=== PATIENT | female | born 1950 | race Caucasian/White ===

== ENCOUNTER → 2024-09-26 14:52 | Outpatient (REF) | payer MEDICARE, SELFPAY | LOC: PAVMRI 14:52 | PROVIDERS: ATTENDING PHYSICIAN Orthopaedic Surgery; FAMILY PHYSICIAN Internal Medicine | DX: Z96.642 Presence of left artificial hip joint (principal); M70.62 Trochanteric bursitis, left hip; M76.32 Iliotibial band syndrome, left leg | CPT/HCPCS: 73721 ==

== ENCOUNTER 2024-12-09 10:01 | Inpatient (IN) | payer MEDICARE, SELFPAY ==
[2024-11-25 10:50] LABS: Hematocrit 31.4 % (37.0-47.0); Hemoglobin 10.2 g/dL (12.0-16.0); Mean Corp Hgb Conc. 32.5 g/dL (33.0-37.0); Mean Corpuscular Hgb 29.4 pg (27.0-31.0); Mean Corpuscular Volume 90.5 fL (81.0-99.0); Mean Platelet Volume 10.2 fL (7.4-10.4); Platelet Count 233 10^3/uL (130-400); Red Blood Cell Count 3.47 10^6/uL (4.20-5.40); Red Cell Dist. Width 14.5 % (11.5-14.5); White Blood Cell Count 7.1 10^3/uL (4.8-10.8)
[2024-11-25 11:11] LABS: ALT (SGPT) 21 U/L (0-35); AST (SGOT) 26 U/L (14-36); Albumin 4.3 g/dl (3.5-5.0); Alkaline Phosphatase 61 U/L (38-126); Blood Urea Nitrogen 34 mg/dl (7-17); Calcium 9.6 mg/dl (8.4-10.2); Carbon Dioxide 25 mmol/L (22-30); Chloride 104 mmol/L (98-107); Glucose 141 mg/dl (70-99); Potassium 4.5 mmol/L (3.5-5.1); Sodium 138 mmol/L (135-145); Total Bilirubin 0.2 mg/dl (0.2-1.3); Total Protein 6.7 g/dl (6.3-8.2)
[2024-11-25 13:24] LABS: Glycohemoglobin (HgbA1c) 6.8 % (4.0-5.6)
[2024-11-25 14:14] VITALS: BMI 32.1
[2024-12-03 14:40] VITALS: BMI 32.1
--- NOTE | 2024-12-03 14:41 | PTCARENOTE ---
Pt was under the impression from office that she is receiving VN and PT at home. Pt will call Cielo in office to clarify. She is aware she will need to set up outpt PT melanie if not receiving home.
[2024-12-09] VITALS (15 sets, daily range): BP systolic 83–132; BP diastolic 54–78; PULSE 57–60; O2SAT 96; BMI 32.1
[2024-12-09 10:35] LABS: Glucose - Point of Care 126 mg/dl (70-99)
[2024-12-09] MEDS: NORMOSOL-R/PLASMALYTE-A 1000 IV ×2 (10:53→16:42)
[2024-12-09] MEDS: CELEBREX 200 MG PO (10:53)
[2024-12-09] MEDS: TYLENOL 650 MG PO ×3 (10:53→20:15)
--- NOTE | 2024-12-09 13:57 | W.DS.TRANS ---
DC Summary - Claims Counsel
-
Discharge Instructions:
Discharge Diagnosis/Procedures L JASON Revision 12/09/24
Diet Diabetic, Carb Controlled
Activity With Walker
Driving Restrictions No driving
Bathing Restrictions OK to Shower
Other Services PT
Instructions:
Stand-Alone Forms: Total Hip/Knee Replacement D/C
Changes to Home Medications: Yes
Discharge Medications:
DC Medications w/original date entered in [facility]
clozapine 100 mg tablet 100 mg PO HS 05/30/21
clozapine 25 mg tablet 75 mg PO HS 05/30/21
fenofibric acid (choline) 135 mg capsule,delayed release 135 mg PO DAILY 05/30/21
losartan 25 mg tablet 25 mg PO HS 05/30/21
metformin 500 mg tablet 500 mg PO DAILY 05/30/21
simvastatin 20 mg tablet 20 mg PO HS 05/30/21
venlafaxine 150 mg capsule,extended release 24 hr (Effexor XR) 150 mg PO HS 05/30/21
venlafaxine 75 mg capsule,extended release 24 hr 75 mg PO HS 05/30/21
vit C 250 mg-vit E 90 mg-zinc 40 mg-copper 1 [id number] capsule (PreserVision AREDS-2) 1 ea PO BID 05/30/21
Bone Supplement 1 tab PO DAILY 12/03/24
Curcumin 1 tab PO DAILY PRN pain 12/03/24
Selenimin 1 tab PO DAILY 12/03/24
biotin 5,000 mcg chewable tablet 5,000 mcg PO DAILY 12/03/24
bupropion HCl 300 mg 24 hr tablet, extended release 300 mg PO HS 12/03/24
chlorhexidine gluconate 0.12 % mouthwash 15 ml buccal BID mouth pain/thrush 12/03/24
cholecalciferol (vitamin D3) 25 mcg (1,000 unit) tablet (Vitamin D3) 25 mcg PO DAILY 12/03/24
famotidine 10 mg tablet (Pepcid AC) 10 mg PO DAILY PRN reflux 12/03/24
ferrous sulfate 142 mg (45 mg iron) tablet,extended release 142 mg PO DAILY 12/03/24
gabapentin 100 mg capsule 100 mg PO HS 12/03/24
guar gum 1 tbsp PO DAILY PRN constipation 12/03/24
loratadine 10 mg tablet (Claritin) 10 mg PO DAILY 12/03/24
metformin 500 mg tablet 1,000 mg PO QPM 12/03/24
mupirocin 2 % topical ointment 1 applic topical BID infection prevention #1 tube 12/03/24
nystatin 100,000 unit/mL oral suspension 1 ml buccal TID PRN burning/thrush 12/03/24
vibegron 75 mg tablet (Gemtesa) 75 mg PO QPM 12/03/24
vitamin B complex 1 cap PO DAILY 12/03/24
Saccharomyces boulardii 250 mg capsule (Florastor) 250 mg PO BID #1 cap 12/09/24
acetaminophen 325 mg tablet (Tylenol) 650 mg (2 x 325 mg) PO QID #1 tab 12/09/24
aspirin 325 mg tablet 325 mg PO DAILY Blood clot prevention/tx #0 tabs 12/09/24
cefadroxil 500 mg capsule 500 mg PO BID infection prevention #14 caps 12/09/24
docusate sodium 100 mg capsule (Colace) 100 mg PO BID stool softner #1 cap 12/09/24
magnesium hydroxide 400 mg/5 mL oral suspension (Milk of Magnesia) 30 ml PO HS PRN Constipation #1 mL 12/09/24
oxycodone 5 mg tablet 5 mg PO Q6H PRN 1 tab moderate pain, 2 tabs severe pain #30 tabs 12/09/24
sennosides 8.6 mg capsule (senna) 17.2 mg (2 x 8.6 mg) PO BID PRN constipation #0 caps 12/09/24
sennosides 8.6 mg tablet (Senokot) 17.2 mg (2 x 8.6 mg) PO BID laxative #2 tabs 12/09/24
Home Medication Changes
Saccharomyces boulardii 250 mg capsule (Florastor) 250 mg PO BID #1 cap 12/09/24
acetaminophen 325 mg tablet (Tylenol) 650 mg (2 x 325 mg) PO QID #1 tab 12/09/24
aspirin 325 mg tablet 325 mg PO DAILY Blood clot prevention/tx #0 tabs 12/09/24
cefadroxil 500 mg capsule 500 mg PO BID infection prevention #14 caps 12/09/24
docusate sodium 100 mg capsule (Colace) 100 mg PO BID stool softner #1 cap 12/09/24
magnesium hydroxide 400 mg/5 mL oral suspension (Milk of Magnesia) 30 ml PO HS PRN Constipation #1 mL 12/09/24
oxycodone 5 mg tablet 5 mg PO Q6H PRN 1 tab moderate pain, 2 tabs severe pain #30 tabs 12/09/24
sennosides 8.6 mg capsule (senna) 17.2 mg (2 x 8.6 mg) PO BID PRN constipation #0 caps 12/09/24
sennosides 8.6 mg tablet (Senokot) 17.2 mg (2 x 8.6 mg) PO BID laxative #2 tabs 12/09/24
Pending Results: No
[2024-12-09 14:14] LABS: Glucose - Point of Care 112 mg/dl (70-99)
[2024-12-09] MEDS: ROXICODONE 5 MG PO (14:42)
--- NOTE | 2024-12-09 14:46 | OR.RPT ---
Operative Report
Operative Report
Orthopaedic Surgery Operative Note
DATE OF OPERATION: 12/09/2024
PREOPERATIVE DIAGNOSES: Mechanical failure of total hip replacement, left
POSTOPERATIVE DIAGNOSES: Same, trunionosis
OPERATION PERFORMED: Revision left total hip arthroplasty, single component, with ball head and polyethylene liner exchange
SURGEON: Tomás Mancera MD
WEAVING PROFESSOR: Berhane Stone PA-C who helped with patient and limb positioning and retraction
ANESTHESIA: Spinal
COMPLICATIONS: None.
ESTIMATED BLOOD LOSS: 50 mL.
DRAINS: None
SPECIMEN: x4; Cultures x3 and pathology x1
FINDINGS: Fibrinous nodular synovitis around lateral femur and hip capsule; no purulence; intact abductor tendons; minimal trunion wear; signs of corrosion of inner aspect of metal head; well fixed femoral and acetabular components
EXPLANTS:
[place] Trident 32mm posterior-lipped acetabular polyethylene liner
[place] Accolade cobalt-chrome femoral head 32mm +4mm
IMPLANTS:
[place] Trident 36mm neutral Polyethylene liner
Biolox delta ceramic 36mm +5mm femoral head
[place] C-Taper V40 adapter
INDICATIONS: The patient presented to my office with left hip pain. The patient had previously undergone total hip arthroplasty in 2007 at an outside facility. She had been experiencing worsening hip pain. Xrays showed soft tissue findings
concerning for metallosis. Implants appeared well fixed without fracture. Serum testing was low concern for infection but showed elevated serum metal ion levels. MRI showed fluid adjacent to joint and trochanter concerning for adverse location soft
tissue response. 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 We reviewed the natural history of this problem, as well as the risks, benefits, and alternatives of various treatment options. The patient exhausted all nonoperative treatment options and
wished to proceed with revision hip replacement surgery. I discussed that primary revision option would be exchange of modular parts including ball head and liner. I discussed that exchange of the acetabular or femoral component may also be
necessary if the components are noted to be loose or not in optimal position. The patient understood the risks which included, but were not limited to, bleeding, infection, failure to relieve pain, more pain than preop, damage to blood vessels and
nerves, need for reoperation, mechanical failure of the implants, wound healing problems, stiffness, instability, blood clot, pulmonary embolism, myocardial infarction, pneumonia, arrhythmia, CVA, and . The patient accepted these risks and
wished to proceed. All questions were answered, and informed consent was obtained.
PROCEDURE IN DETAIL: The patient was identified in the preoperative holding area. The left hip was identified as the operative site. The patient was taken in the operating room and transferred to the operative table. Spinal anesthesia was
performed. IV antibiotics and tranexamic acid were administered. The patient was placed in the lateral position with Stulberg hip positioners. Axillary roll was placed. The down leg was well padded. All bony prominences were well padded. The
operative limb was prepped and draped in the usual sterile fashion.
Time out was performed. A posterolateral approach to the hip was used. The prior scar was too posterior for optimal extensile exposure, so an incision was made centered on the greater trochanter. Dissection was taken down sharply through
subcutaneous tissues. Meticulous hemostasis was achieved throughout the case with electrocautery. We split the fascia devin in line with skin incision. I split the gluteus jacqui bluntly. We cauterized all crossing vessels as we split it. I palpated
the sciatic nerve and made sure it was well posterior in the operative field. It was protected throughout the case.
Upon splitting the ITB, there was friable noduler soft tissue changes about the lateral compartment extending to the joint and surrounding capsule. The posterior aspect of the femur was bare of short external rotator tendon attachments or posterior
capsule attachment. The gluteus medius and minimus tendon insertions were intact and were retracted anteriorly. I identified the posterior capsule and extended capsulotomy distally and inferiorly. The capsule and lateral compartment were debrided
of the friable nodular soft tissue down to healthy appearing capsule and muscle tissue. There was no purulence about the hip or signs of infection. Tissue cultures were sent. The capsule edges were tagged for later repair. I referenced the cut
edge of the capsular flap to 2 fixed points on the greater trochanter for assistance with recreation of limb length and offset. I dissected the capsule from about the femoral and acetabular prosthesis. I then gently dislocated the hip posteriorly.
The femoral component was inspect and noted to be well positioned and well fixed to bone without loosening. The ball head was removed. It�s size was noted and compared to the stated size in the operative note and noted to be the same. The turnion
was inspected and found to be intact without signs of minimal corrosion. The neck of the prosthesis was free of damage. The inner aspect of the ball was inspected and noted to have several bands of black discoloration consistent with corrosion.
Based in the largely intact and well preserved trunion, decision was made not to revise the femoral stem. Revision equipment was available and open.
I placed a curve hohmann retractor over the anterior lip of the acetabular component. The femur was carefully translated anteriorly to expose the acetabular component. A second retractor was placed inferiorly. Capsule was removed until a
circumferential view of the acetabulum was achieved. The acetabular component was noted to be well positioned and well fixed to bone. The polyethylene liner was noted to be intact. The liner was disengaged from the locking mechanism. This mechanism
was inspected and noted to be intact without damage. The size was confirmed and compared to stated size in the operative report and noted to be the same. The socket was irrigated and then the new liner was impacted into place.
The hip was trialed with trial ball heads. The hip was noted to be stable throughout the arch of motion. The hip was taken through a complete range of motion. It was noted to be stable in extension without impingement. It was stable in the position
of sleep and in flexion with internal rotation. The limb length and offset were checked compared to the capsular flap and the down leg and was appropriate. The trial ball head was removed, and the final ball head was impacted onto a clean and dry
Martinez taper. The hip was reduced.
A dilute betadine soak was performed for approximately 3 minutes, and then the hip was copiously irrigated. I repaired the capsule with #2 Ethibond to drill holes in the greater trochanter as well as directly to the anterior superior capsule with
ethibond. Local anesthetic was injected. The fascia devin was closed with #1 PDS in running fashion. The subcutaneous tissues were closed with 2-0 PDS in running fashion. The skin was reapproximated with 3-0 Monocryl subcuticular suture. I placed a
Prineo dressing followed by a Mepilex Ag dressing. The patient awoke from anesthesia without difficulty. Sponge and instrument counts were correct x2 at the end of the case.
I was present and participated in the entire procedure. I checked leg length at the ankles after transfer on the bed which was equal. The patient was sent to the recovery room in stable condition.
Terry Mancera MD
[2024-12-09 16:18] LABS: Glucose - Point of Care 128 mg/dl (70-99)
[2024-12-09] MEDS: TRICOR 145 MG PO (17:27)
[2024-12-09] MEDS: GLUCOPHAGE 1000 MG PO (17:28)
[2024-12-09] MEDS: ASPIRIN 325 MG PO (17:28)
[2024-12-09] MEDS: ANCEF 5 IV (20:15)
[2024-12-09] MEDS: SENOKOT 17.2 MG PO (20:15)
[2024-12-09] MEDS: ULTRAM 50 MG PO (20:16)
[2024-12-09] MEDS: COLACE 100 MG PO (20:16)
[2024-12-09] MEDS: BACTROBAN 2% OINTMENT 1 APPLIC NASAL (20:16)
[2024-12-09 21:26] LABS: Glucose - Point of Care 215 mg/dl (70-99)
[2024-12-09] MEDS: WELLBUTRIN XL (24 hour extended release) 300 MG PO (22:30)
[2024-12-09] MEDS: EFFEXOR XR 150 MG PO (22:31)
[2024-12-09] MEDS: CLOZARIL 75 MG PO (22:31)
[2024-12-09] MEDS: CLOZARIL 100 MG PO (22:31)
[2024-12-09] MEDS: EFFEXOR XR 75 MG PO (22:31)
[2024-12-09] MEDS: LIPITOR 10 MG PO (22:31)
[2024-12-09] MEDS: PEPCID 20 MG PO (22:31)
[2024-12-09] MEDS: NEURONTIN 300 MG PO (22:31)
[2024-12-10] MEDS: TYLENOL 650 MG PO ×4 (00:28→13:05)
--- NOTE | 2024-12-10 02:45 | DOWNTIME ---
There was a [employer] Manager Downtime on 12/10/2024 from 0100 to 12/10/2023 at 0205 . Downtime documentation of patient's care, including medication administrations, has been reconciled in the electronic record per guidelines. Refer to the
patient's paper chart under the miscellaneous tab to see printed paper medication records and downtime forms.
[2024-12-10 03:46] VITALS: BP 115/58
[2024-12-10] MEDS: ANCEF 5 IV (04:03)
[2024-12-10 07:15] VITALS: BP 107/63
[2024-12-10 08:12] LABS: Glucose - Point of Care 90 mg/dl (70-99)
[2024-12-10] MEDS: COLACE 100 MG PO (08:59)
[2024-12-10] MEDS: GLUCOPHAGE 500 MG PO (08:59)
[2024-12-10] MEDS: SENOKOT PO (09:00)
[2024-12-10] MEDS: ULTRAM 50 MG PO (09:01)
[2024-12-10] MEDS: ASPIRIN 325 MG PO (09:01)
[2024-12-10] MEDS: TRICOR 145 MG PO (09:01)
[2024-12-10] MEDS: BACTROBAN 2% OINTMENT 1 APPLIC NASAL (09:01)
[2024-12-10 10:22] VITALS: PULSE 60; O2SAT 96
--- NOTE | 2024-12-10 10:29 | W.PN.ORTHO ---
Today's Communication / Plan
-
d/c
Assessment
.
Distal Motor Intact: Yes
Dressing:
Clean, dry and intact.
Plan
.
Surgery / Date: L JASON Revision 12/09/24
DVT Prophylaxis: Aspirin
Activity:
Out of bed.
PT/OT
Discharge Plan: Home w/ VN
Subjective
.
.:
Patient resting comfortably.
Vital Signs and Labs
.
Vital Signs and Labs:
Lab Results
11/25/24 10:27
11/25/24 10:27
Temp Pulse Resp BP Pulse Ox
97.4 F 60 18 107/63 96
12/10/24 07:15 12/10/24 07:15 12/10/24 07:15 12/10/24 07:15 12/10/24 07:15
Non-invasive Hgb result: 12.7
Physical Exam
-
HEENT: No pallor, cyanosis, or jaundice. Throat clear.
NECK: Supple. No JVD.
RESPIRATORY: Lungs clear to auscultation.
CVS: S1, S2 normal. RRR.� No murmur, rub or gallop.
ABDOMEN: Soft, non-tender. No distension. BS+/normal.
EXTREMITIES: strength equal, no calf pain with palpation
STEAMFITTER APPRENTICE: AOx3. No focal deficits. unified communications engineer grossly intact
--- NOTE | 2024-12-10 10:39 | CM ---
Met with pt at bedside
Pt reports she lives with her in a apartment; no steps to enter,FF set-up
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 Reports independent with ADL's, uses single point cane at baseline to ambulate
DME - rolling walker, single point cane, commode, tub grab bar, hip kit
SNF - [facility] in past
HH - denies past hx
Has ride home -
PCP - Angeles Steinberg
Pharm - [facility] [address]
PT/OT recs - HH. Discussed with pt - no preference
TT sent to [facility] Liaison for home care needs - RN, PT, OT
Given IMM
Plan - anticipate home with [facility]
--- NOTE | 2024-12-10 10:46 | VNURNOTE ---
Home Health Liaison met with patient at bedside to discuss [facility] nurse/therapy, visits, schedule and homebound status. Patient is agreeable and understands that visits at home will be 2-3 x per week to assess and teach medical management. [facility]
brochure provided with contact information. Patient is aware that [facility] will contact them for start of care in 1-2 days after discharge from .
[facility] referral completed in [facility].
[2024-12-10 11:27] VITALS: BP 110/60
== END 2024-12-10 13:37 | disposition home health service (06) | DRG 468 ==
LOC: 2 SOUTH 10:01
PROVIDERS: ADMITTING PHYSICIAN Orthopaedic Surgery; FAMILY PHYSICIAN Internal Medicine; REFERRING PHYSICIAN Internal Medicine
PROC: 0SUE09Z Supplement Left Hip Joint, Acetabular Surface with Liner, Open Approach (ICD-10-PCS; 2024-12-09)
PROC: 0SRS03A Replacement of Left Hip Joint, Femoral Surface with Ceramic Synthetic Substitute, Uncemented, Open Approach (ICD-10-PCS; 2024-12-09)
PROC: 0SPS0JZ Removal of Synthetic Substitute from Left Hip Joint, Femoral Surface, Open Approach (ICD-10-PCS; 2024-12-09)
PROC: 0SPB09Z Removal of Liner from Left Hip Joint, Open Approach (ICD-10-PCS; 2024-12-09)
DX: T84.061A Wear of articular bearing surface of internal prosthetic left hip joint, initial encounter (principal); I12.9 Hypertensive chronic kidney disease with stage 1 through stage 4 chronic kidney disease, or unspecified chronic kidney disease; E11.22 Type 2 diabetes mellitus with diabetic chronic kidney disease; E55.9 Vitamin D deficiency, unspecified; E78.5 Hyperlipidemia, unspecified; K21.9 Gastro-esophageal reflux disease without esophagitis; J45.909 Unspecified asthma, uncomplicated; N32.81 Overactive bladder; G47.33 Obstructive sleep apnea (adult) (pediatric); E11.69 Type 2 diabetes mellitus with other specified complication; N18.32 Chronic kidney disease, stage 3b; F25.0 Schizoaffective disorder, bipolar type; Z96.651 Presence of right artificial knee joint; Z88.1 Allergy status to other antibiotic agents; Z88.5 Allergy status to narcotic agent; Z79.84 Long term (current) use of oral hypoglycemic drugs; Y79.2 Prosthetic and other implants, materials and accessory orthopedic devices associated with adverse incidents
CPT/HCPCS: 88304; 36415; 73502; 80053; 82962; 83036; 85027; 86850; 86900; 86901; 87070; 87075; 87176; 87205; 97110; 97116; 97163; 97166; 97530; 97535

== ENCOUNTER 2024-12-20 12:14 | Emergency (ER) | payer OTHER, SELFPAY ==
[2024-12-20 12:16] VITALS: BP 123/57
--- NOTE | 2024-12-20 14:24 | ED.GENMED ---
History of Present Illness
General
Chief Complaint: DVT/Possible Blood Clot
Source: patient
Exam Limitations: none
Time Seen by Provider: 12/20/24 14:16
History of Present Illness
History of Present Illness:
74-year-old female presents complaining of increased swelling to the left leg. 10 days ago, she had a left hip revision surgery. She states she overdid it yesterday had more of an active day than usual and she had more swelling into her foot
today. She denies chest pain or shortness of breath. She has not been super compliant about taking her aspirin postoperatively. She is concerned about a blood clot. No fevers. No other complaints at this time
Past History
Past History
ED Past Medical History: Psychiatric
ED Past Surgical History: Orthopedic; Negative Appendectomy, Bowel resection or Cholecystectomy
Social History
Tobacco: Former smoker
Alcohol: None
Drug: None
Personal:
Living: with family
Employment: Employed
Family History
Family History: Other (CAD)
Phy Exam
Physical Exam
Physical Exam:
General: Well-appearing female in no acute respiratory distress
HEENT: Normocephalic atraumatic
Heart: Regular rate and rhythm no murmurs
Lungs: Clear no wheeze
Extremities: Mild pitting edema left leg. No cyanosis
Vascular: 2+ dorsalis pedis pulse bilateral feet
Skin is warm no erythema
Course
Orders/Labs/Results
Orders:
Orders
12/20/24 12:20
US Legs, Left [US Periph Venous LOWER Ext LT] Urgent
Comment:
Reason For Exam: swelling
Vital Signs
Initial and Last Documented VS:
Initial Vital Signs
Temp Pulse Resp BP Pulse Ox
98.8 F 70 16 123/57 95
12/20/24 12:16 12/20/24 12:16 12/20/24 12:16 12/20/24 12:16 12/20/24 12:16
Last Documented Vital Signs
Temp Pulse Resp BP Pulse Ox
98.8 F 70 16 123/57 95
12/20/24 12:16 12/20/24 12:16 12/20/24 12:16 12/20/24 12:16 12/20/24 12:16
MDM/Problems Addressed
Differential Diagnosis Includes:
Left leg swelling 10 days postop from left arthroplasty revision. Ultrasound of left leg negative for DVT. Check dependent edema. No signs of infection. Recommended elevation and continued postoperative recommendations from her surgeon. Stable
for discharge
*Critical Care Note
Total Time (30-74mins, 75-104mins- exclusive of procedures): Not Applicable
ED Attending Note
-
Portions of this chart may have been created with voice recognition software.� Occasional wrong word or��sound alike� substitutions may have occurred due to the inherent limitations of voice recognition software.
Discharge Plan
Departure
Patient Disposition: Home (Routine Discharge)
Date of Disposition: 12/20/24
Time of Disposition: 14:27
Patient with high blood pressure during this ER visit?: No
Discharge Problem:
Edema
Instructions: Swelling
Prescriptions:
No Action
metformin 500 MG tablet
500 mg PO DAILY
venlafaxine 75 MG capsule,extended release 24hr
75 mg PO HS
clozapine 100 MG tablet
100 mg PO HS
venlafaxine [Effexor XR] 150 MG capsule,extended release 24hr
150 mg PO HS
simvastatin 20 MG tablet
20 mg PO HS
losartan 25 MG tablet
25 mg PO HS
clozapine 25 MG tablet
75 mg PO HS
fenofibric acid (choline) 135 MG capsule,delayed release(DR/EC)
135 mg PO DAILY
PreserVision AREDS-2 1 EACH capsule
1 ea PO BID
metformin 500 mg Tablet
1,000 mg PO QPM
famotidine [Pepcid AC] 10 mg Tablet
10 mg PO DAILY PRN (Reason: reflux)
guar gum Packet
1 tbsp PO DAILY PRN (Reason: constipation)
gabapentin 100 mg Capsule
100 mg PO HS
loratadine [Claritin] 10 mg Tablet
10 mg PO DAILY
vitamin B complex Capsule
1 cap PO DAILY
bupropion HCl 300 mg Tablet Extended Release 24 Hr
300 mg PO HS
cholecalciferol (vitamin D3) [Vitamin D3] 25 mcg (1,000 unit) Tablet
25 mcg PO DAILY
ferrous sulfate 142 mg (45 mg iron) Tablet Extended Release
142 mg PO DAILY
Gemtesa 75 mg Tablet
75 mg PO QPM
biotin 5,000 mcg Tablet,Chewable
5,000 mcg PO DAILY
Bone Supplement
1 tab PO DAILY
Curcumin
1 tab PO DAILY PRN (Reason: pain)
Selenimin
1 tab PO DAILY
mupirocin 2 % ointment
1 applic topical BID Qty: 1 0RF
Patient Comments:
started treatment sunday12/06/24 and completed BID
nystatin 100,000 unit/mL Suspension
1 ml BUCCAL TID PRN (Reason: burning/thrush)
chlorhexidine gluconate 0.12 % Mouthwash
15 ml BUCCAL BID
cefadroxil 500 mg capsule
500 mg PO BID Qty: 14 0RF
Rx Instructions:
*Take w/ food
*Take w/ probiotic
*POST-OP USE
docusate sodium [Colace] 100 mg capsule
100 mg PO BID Qty: 1 0RF
Saccharomyces boulardii [Florastor] 250 mg capsule
250 mg PO BID Qty: 1 0RF
magnesium hydroxide [Milk of Magnesia] 400 mg/5 mL suspension
30 ml PO HS PRN (Reason: Constipation) Qty: 1 0RF
sennosides [Senokot] 8.6 mg tablet
17.2 mg PO BID Qty: 2 0RF
oxycodone 5 mg tablet
5 mg PO Q6H PRN (Reason: 1 tab moderate pain, 2 tabs severe pain) Qty: 30 0RF
Rx Instructions:
Ongoing therapy
acetaminophen [Tylenol] 325 mg tablet
650 mg PO QID Qty: 1 0RF
Rx Instructions:
SCHEDULED DOSING
aspirin 325 mg Tablet
325 mg PO DAILY Qty: 0 0RF
senna 8.6 mg Capsule
17.2 mg PO BID PRN (Reason: constipation) Qty: 0 0RF
Referrals:
Angeels Steinberg DO [Family Provider] -
Activity Restrictions/Additional Instructions:
Elevate your foot if able to help with swelling. Continue postoperative recommendations by your surgeon. As discussed, there is no DVT on the ultrasound
Interventions
Interventions:
*Risk Screen - Suicide Last Done: 12/20/24 12:16
*Neglect/Abuse Screening Last Done: 12/20/24 12:16
Discharge Date and Time
Print Language: SURINAMESE
[2024-12-20 15:19] VITALS: BP 128/76
== END 2024-12-20 15:21 | disposition home or self-care (01) ==
LOC: EMR 12:14
PROVIDERS: EMERGENCY PHYSICIAN Emergency Medicine; FAMILY PHYSICIAN Internal Medicine
DX: R60.0 Localized edema (principal); Z90.49 Acquired absence of other specified parts of digestive tract; Z87.891 Personal history of nicotine dependence
CPT/HCPCS: 99284; 93971

== ENCOUNTER 2025-03-31 14:01 | Emergency (ER) | payer OTHER, SELFPAY ==
[2025-03-31] VITALS (14 sets, daily range): BP systolic 97–131; BP diastolic 49–97; BMI 30.3
--- NOTE | 2025-03-31 15:06 | ED.MUSCINJ ---
HPI-Injury
General
Chief Complaint: Musculo-Skeletal Complaint
Source: patient and ambulance crew
Exam Limitations: none
Time Seen by Provider: 03/31/25 15:05
Nursing documentation reviewed up to this point in time: agreed with
History of Present Illness-Injury
Is this injury a work related problem?: No
Is pt an associate of [facility]/[place]?: No
Initial Injury comments:
74 yo female presents emergency department due to left hip pain she was going to sit in a chair and got sudden left hip pain. Hip replacement on the left side November 2024. This was done by Dr. Mancera. She denies any other pain. She did not fall
or hit her head.
Past History
Past History
ED Past Medical History: Psychiatric
ED Past Surgical History: Orthopedic (Left hip replacement); Negative Appendectomy, Bowel resection or Cholecystectomy
Social History
Tobacco: Former smoker
Alcohol: None
Drug: None
Personal:
Living: with family
Employment: Employed
Family History
Family History: Other (CAD)
Review of Systems
Review of Systems
Allergies reviewed?: Yes
All Other Systems: Not applicable
Constitutional: Reports no symptoms
EENT: Reports no symptoms
Respiratory: Reports no symptoms
Cardiac: Reports no symptoms
ABD/GI: Reports no symptoms
: Reports no symptoms
Musculoskeletal: Reports joint pain
Skin: Reports no symptoms
Neurological: Reports no symptoms
Endocrine: Reports no symptoms
Hematologic/Lymphatic: Reports no symptoms
Psychiatric: Reports no symptoms
Phy Exam
Physical Exam
Physical Exam:
Physical Exam
General: no apparent distress, not acutely ill
Neck: supple. no meningeal signs. normal posterior pharynx
Heart: s1/s2 regular rate and rhythm, no murmur. equal radial
pulses.
HEENT: Pupils equal round reactive to light, EOMI
Lungs: no acute respiratory distress. clear bilaterally
Abdomen: normal bowel sounds. not tender. no CVAT
Neuro: alert and oriented. no focal neurological deficits cranial nerves II through XII intact
Skin: no rash
Psychiatric: well kept. interactive and cooperative
Extremities: no edema. no calf tenderness. negative homans. good distal pulses, left leg internally rotated
Injury Course
Orders/Labs/Results
Orders:
Orders
03/31/25 14:09
Hip, Left 2-3 Views [CR Hip - LT w/wo Pel 2-3 Vw*] Urgent
Comment:
Reason For Exam: left hip pain after sitting in chair
Include a pelvis x-ray?: Yes
03/31/25 15:06
ASA Classification Routine
IV Insert/Care/Rem.- Treatment PRN
Propofol [Diprivan] 80 mg IV NOW STA
03/31/25 15:45
Ondansetron Injectable [Zofran] 4 mg IV NOW STA
03/31/25 15:46
Morphine Sulfate 4 mg IV NOW STA
03/31/25 16:31
CR Hip - LT without Pel 1 Vw Stat
Comment: portable
Reason For Exam: hip reduction
03/31/25 16:39
CR Hip - LT without Pel 1 Vw Stat
Comment: portable
Reason For Exam: hip reduction
Abnormal Lab Results
03/31/25
15:27
POC Glucose 137 H mg/dl
(70-99)
Procedures
Moderate Sedation
ASA Risk Score: Class II
Chart and allergies reviewed: Yes
Consent for anesthesia obtained: Yes
Time out completed (validating right patient & procedure): Yes
Moderate Sedation Start Time(when first medication is given): 16:26
History of difficult intubation: No
Airway free of obstruction: Yes
Patient has a gag reflex: Yes
Patient is able to open mouth: Yes
Patient has no dentures: Yes
Patient has no loose teeth: Yes
Medication administered by Provider during Moderate Sedation: IV Propofol (mg)
Total dose administered: 190
Time drug administered: 16:27
Moderate Sedation Procedure End Time: 16:48
Joint/Fracture Reduction
Left Hip:
Indication for procedure:: Left hip dislocation
Procedure completed by: Dr. Ridley
Consent form signed: Yes
Joint reduced: with anesthesia sedation
Anesthesia/sedation: Moderate sedation
Injury was: closed
Further treatement: needs re-check only
Post reduction exam: stable
Capillary Refill: normal
Normal distal neurovascular exam?: Yes
Peripheral Pulses: dorsalis pedis (left): 4+ and dorsalis pedis (right): 4+
MDM/Problems Addressed
Differential Diagnosis Includes:
Hip fracture, hip dislocation
MDM/Problems Addressed:
74-year-old female with left hip reduction, after dislocation. Satisfactory reduction. Patient tolerated sedation well.
Chronic conditions affecting care: Asthma
*Radiology
Radiology exam reviewed: preliminary read by ED provider (left hip xray: left hip dislocation, repeat x-ray with satisfactory reduction)
*Pulse Oximetry
Patient hypoxic: no
*Critical Care Note
Total Time (30-74mins, 75-104mins- exclusive of procedures): Not Applicable
Data Reviewed
Further Testing Considered But Not Given:
CT pelvis not indicated
Patient Management
Social determinants of health affecting care: Living situation
Escalation/DeEscalation of care consider admission/obs:
Admit not indicated
ED Attending Note
-
Portions of this chart may have been created with voice recognition software.� Occasional wrong word or��sound alike� substitutions may have occurred due to the inherent limitations of voice recognition software.
Discharge Plan
Departure
Patient with high blood pressure during this ER visit?: Yes
Condition: Good
Discharge Problem:
Dislocation of hip, left, closed
Instructions: Hip Dislocation (DC), MODERATE SEDATION ADULT, BLOOD PRESSURE
Prescriptions:
No Action
metformin 500 MG tablet
500 mg PO DAILY
venlafaxine 75 MG capsule,extended release 24hr
75 mg PO HS
clozapine 100 MG tablet
100 mg PO HS
venlafaxine [Effexor XR] 150 MG capsule,extended release 24hr
150 mg PO HS
simvastatin 20 MG tablet
20 mg PO HS
losartan 25 MG tablet
25 mg PO HS
clozapine 25 MG tablet
75 mg PO HS
fenofibric acid (choline) 135 MG capsule,delayed release(DR/EC)
135 mg PO DAILY
PreserVision AREDS-2 1 EACH capsule
1 ea PO BID
metformin 500 mg Tablet
1,000 mg PO QPM
famotidine [Pepcid AC] 10 mg Tablet
10 mg PO DAILY PRN (Reason: reflux)
guar gum Packet
1 tbsp PO DAILY PRN (Reason: constipation)
gabapentin 100 mg Capsule
100 mg PO HS
loratadine [Claritin] 10 mg Tablet
10 mg PO DAILY
vitamin B complex Capsule
1 cap PO DAILY
bupropion HCl 300 mg Tablet Extended Release 24 Hr
300 mg PO HS
cholecalciferol (vitamin D3) [Vitamin D3] 25 mcg (1,000 unit) Tablet
25 mcg PO DAILY
ferrous sulfate 142 mg (45 mg iron) Tablet Extended Release
142 mg PO DAILY
Gemtesa 75 mg Tablet
75 mg PO QPM
biotin 5,000 mcg Tablet,Chewable
5,000 mcg PO DAILY
Bone Supplement
1 tab PO DAILY
Curcumin
1 tab PO DAILY PRN (Reason: pain)
Selenimin
1 tab PO DAILY
mupirocin 2 % ointment
1 applic topical BID Qty: 1 0RF
Patient Comments:
started treatment sunday12/06/24 and completed BID
nystatin 100,000 unit/mL Suspension
1 ml BUCCAL TID PRN (Reason: burning/thrush)
chlorhexidine gluconate 0.12 % Mouthwash
15 ml BUCCAL BID
cefadroxil 500 mg capsule
500 mg PO BID Qty: 14 0RF
Rx Instructions:
*Take w/ food
*Take w/ probiotic
*POST-OP USE
docusate sodium [Colace] 100 mg capsule
100 mg PO BID Qty: 1 0RF
Saccharomyces boulardii [Florastor] 250 mg capsule
250 mg PO BID Qty: 1 0RF
magnesium hydroxide [Milk of Magnesia] 400 mg/5 mL suspension
30 ml PO HS PRN (Reason: Constipation) Qty: 1 0RF
sennosides [Senokot] 8.6 mg tablet
17.2 mg PO BID Qty: 2 0RF
oxycodone 5 mg tablet
5 mg PO Q6H PRN (Reason: 1 tab moderate pain, 2 tabs severe pain) Qty: 30 0RF
Rx Instructions:
Ongoing therapy
acetaminophen [Tylenol] 325 mg tablet
650 mg PO QID Qty: 1 0RF
Rx Instructions:
SCHEDULED DOSING
aspirin 325 mg Tablet
325 mg PO DAILY Qty: 0 0RF
senna 8.6 mg Capsule
17.2 mg PO BID PRN (Reason: constipation) Qty: 0 0RF
Referrals:
Angeles Steinberg DO [Family Provider] -
Tomás Mancera MD [Active] - Call in 1-3 days for appt
Interventions
Interventions:
*Risk Screen - Suicide Last Done: 03/31/25 14:09
*General Assessment Last Done: 03/31/25 14:09
*Neglect/Abuse Screening Last Done: 03/31/25 14:09
*ED COVID-19 Vaccine History Last Done: 03/31/25 14:09
ED-Musculoskeletal Assessment Last Done: 03/31/25 14:09
Discharge Date and Time
Print Language: UPPER SORBIAN
[2025-03-31 15:28] LABS: Glucose - Point of Care 137 mg/dl (70-99)
[2025-03-31] MEDS: MORPHINE SULFATE 4 MG IV (16:01)
[2025-03-31] MEDS: ZOFRAN 4 MG IV (16:04)
== END 2025-03-31 18:23 | disposition home or self-care (01) ==
LOC: EMR 14:01
PROVIDERS: EMERGENCY PHYSICIAN Emergency Medicine; FAMILY PHYSICIAN Internal Medicine
DX: T84.021A Dislocation of internal left hip prosthesis, initial encounter (principal); Y79.2 Prosthetic and other implants, materials and accessory orthopedic devices associated with adverse incidents; J45.909 Unspecified asthma, uncomplicated; Z87.891 Personal history of nicotine dependence
CPT/HCPCS: 96374; 96375; 27265; 99152; 99285; 73501; 73502; 82962

== ENCOUNTER 2025-08-26 14:45 | Emergency (ER) | payer OTHER, SELFPAY ==
[2025-08-26] VITALS (16 sets, daily range): BP systolic 115–135; BP diastolic 63–84; BMI 30.9
--- NOTE | 2025-08-26 16:37 | ED.GENMED ---
History of Present Illness
General
Chief Complaint: Musculo-Skeletal Complaint
Source: patient
Exam Limitations: none
Time Seen by Provider: 08/26/25 15:04
History of Present Illness
History of Present Illness:
See MDM
Past History
Past History
ED Past Medical History: Psychiatric
ED Past Surgical History: Orthopedic (Left hip replacement); Negative Appendectomy, Bowel resection or Cholecystectomy
Social History
Tobacco: Former smoker
Alcohol: None
Drug: None
Personal:
Living: with family
Employment: Employed
Family History
Family History: Other (CAD)
Phy Exam
Physical Exam
Physical Exam:
See MDM
Course
Orders/Labs/Results
Orders:
Orders
08/26/25 14:55
CR Hip - LT w/wo Pel 2-3 Vw* Urgent
Comment:
Reason For Exam: L hip pain
Include a pelvis x-ray?: Yes
08/26/25 15:11
Morphine Sulfate 4 mg IV NOW STA
08/26/25 15:54
Propofol [Diprivan] 20 ml .ROUTE .STK-MED
08/26/25 16:29
Hip, Left 1 View [CR Hip - LT without Pel 1 Vw] Stat
Comment:
Reason For Exam: s/p reduction
Vital Signs
Initial and Last Documented VS:
Initial Vital Signs
Temp Pulse Resp BP Pulse Ox
98.2 F 58 18 129/68 94
08/26/25 14:50 08/26/25 14:50 08/26/25 14:50 08/26/25 14:50 08/26/25 14:50
Last Documented Vital Signs
Temp Pulse Resp BP Pulse Ox
98.2 F 62 14 124/63 95
08/26/25 14:50 08/26/25 16:35 08/26/25 16:35 08/26/25 16:30 08/26/25 16:35
Procedures
Moderate Sedation
ASA Risk Score: Class II
Chart and allergies reviewed: Yes
Consent for anesthesia obtained: Yes
Time out completed (validating right patient & procedure): Yes
Moderate Sedation Start Time(when first medication is given): 16:28
History of difficult intubation: No
Airway free of obstruction: Yes
Patient has a gag reflex: Yes
Patient is able to open mouth: Yes
Patient has no dentures: Yes
Patient has no loose teeth: Yes
Medication administered by Provider during Moderate Sedation: IV Propofol (mg)
Total dose administered: 100
Time drug administered: 16:28
Moderate Sedation Procedure End Time: 16:40
Joint/Fracture Reduction
Left Anterior Hip:
Indication for procedure:: left hip dislocation
Procedure completed by: Moe Rice DO
Consent form signed: Yes
Joint reduced: with anesthesia sedation
Injury was: closed
Further treatement: needs re-check only
Post reduction exam: stable
Capillary Refill: normal
Normal distal neurovascular exam?: Yes
Peripheral Pulses: dorsalis pedis (left): 2+
MDM/Problems Addressed
Differential Diagnosis Includes:
Note:
CHIEF COMPLAINT(S)
Left hip dislocation.
HISTORY OF PRESENT ILLNESS
The patient is a 75-year-old female who presented to the emergency department with a suspected left hip dislocation. The patient reported that the dislocation occurred while bending down. She had a previous dislocation in March. On examination, she
reported pain localized to the left hip area. The patient expressed her pain tolerance and mentioned that she has received morphine in the past for pain management. There was no mention of any numbness or loss of sensation in the affected region.
The patient is scheduled for x-rays to confirm the diagnosis and rule out any fractures. Should the x-rays confirm a dislocation, the plan is to administer sedation and perform a reduction.
ADDITIONAL HISTORY OBTAINED FROM SOURCES OTHER THAN THE PATIENT
The patient mentioned that her is anticipated to arrive at the hospital and will likely be present during her care.
PHYSICAL EXAM
General: Alert, no acute distress.
Skin: Warm, dry.
Head: Normocephalic, atraumatic
Neck: Appears supple, trachea midline.
Eyes, Ears, Nose, Mouth, and Throat: Oral mucosa moist.
Cardiovascular: No signs of cyanosis
Respiratory: Respirations are non-labored.
Abdomen: Non-distended
Musculoskeletal: Left leg shortened and internally rotated but neurovascularly intact
Neurological: No focal neurological deficit observed.
Psychiatric: Cooperative, appropriate mood and affect.
PLAN
1. Administer morphine for pain management.
2. Obtain hip x-rays to confirm dislocation and rule out fractures.
3. Should an isolated dislocation be confirmed, proceed with sedation and reduction of the hip.
4. Ensure informed consent is obtained prior to the procedure.
DIFFERENTIAL DIAGNOSIS
The Differential Diagnosis includes, in no particular order and is not limited to:
1. Hip fracture
2. Hip dislocation
3. Muscle strain
4. Ligament sprain
5. Osteoarthritis
6. Trochanteric bursitis
7. Acetabular fracture
8. Femoral head fracture
9. Avascular necrosis of the femoral head
10. Labral tear
CARE-UPDATE
08/26/25 - 16:42
The patient showed no adverse reactions to moderate sedation. Post-reduction, the hip remains stable. The knee immobilizer has been properly repositioned to ensure joint stability and comfort. No complications were observed during or after the
procedure.
Disposition:
SUMMARY OF ENCOUNTER
The patient, a 75-year-old female, presented to the emergency department after experiencing a dislocation of the left hip while bending forward. Previous instances of dislocation were noted, particularly an episode in March. She reported localized
pain in the left hip area and had received morphine previously for pain management. Upon examination, the distal foot was neurovascularly intact. An x-ray was conducted to confirm the dislocation, which was positively affirmed. Following x-ray
confirmation, the patient was administered moderate sedation with propofol. The hip dislocation was successfully reduced.
DISPOSITION
Discharge
ASSESSMENT
Left hip dislocation, confirmed via x-ray.
EMERGENCY TREATMENTS ADMINISTERED
Morphine for pain management, moderate sedation with propofol.
REASSESSMENT
The patient showed no adverse reactions to moderate sedation. Post-reduction, the hip remained stable, and pain was managed effectively with administered medication.
PLAN
Discharge with a knee immobilizer in place for joint stability. Follow-up is advised with an orthopedist.
INDEPENDENT REVIEW OF LABS AND INTERPRETATION OF TESTS
- My independent interpretation of the hip x-ray confirms a left hip dislocation without fractures.
PROCEDURES
Administered moderate sedation with propofol followed by successful reduction of the dislocated hip.
PATIENT EDUCATION AND COUNSELING
The patient was informed about the nature of the dislocation and the procedure performed. Instructions on care of the knee immobilizer were given, with emphasis on limiting weight-bearing activities as she follows up with her orthopedist.
FOLLOW-UP INSTRUCTIONS
The patient was advised to follow up with her orthopedist for further evaluation and management.
MEDICATION RECONCILIATION
Morphine administered for pain management during the emergency department visit.
MEDICAL DECISION MAKING
-Complexity of Data Reviewed: Chronic conditions affecting care include previous dislocation episodes. Differential Diagnosis: Hip fracture, Hip dislocation, Muscle strain, Ligament sprain, Osteoarthritis, Trochanteric bursitis, Acetabular fracture,
Femoral head fracture, Avascular necrosis of the femoral head, Labral tear.
-Data:
Category 1
The independent interpretation of radiology (hip x-ray) confirmed dislocation.
Category 2
Reviewing details provided by the independent historian - the patient mentioned her husbands anticipated presence.
Category 3
Not applicable.
-Risk:
Decisions were made regarding diagnostic testing with some risks (x-ray exposure) and procedures with associated risks (moderate sedation with propofol and hip reduction). The prescription medication was administered during the emergency visit.
DIAGNOSIS
Left hip dislocation (ICD-10: S73.005A)
*Pulse Oximetry
SaO2: 95
Oxygen Mode of Delivery: Room air
Patient hypoxic: no
*Critical Care Note
Total Time (30-74mins, 75-104mins- exclusive of procedures): Not Applicable
ED Attending Note
-
Portions of this chart may have been created with voice recognition software.� Occasional wrong word or��sound alike� substitutions may have occurred due to the inherent limitations of voice recognition software.
Discharge Plan
Departure
Patient with high blood pressure during this ER visit?: No
Discharge Problem:
Dislocation of left hip
Instructions: Hip Dislocation (DC), MODERATE SEDATION ADULT
Prescriptions:
No Action
metformin 500 MG tablet
500 mg PO DAILY
venlafaxine 75 MG capsule,extended release 24hr
75 mg PO HS
clozapine 100 MG tablet
100 mg PO HS
venlafaxine [Effexor XR] 150 MG capsule,extended release 24hr
150 mg PO HS
simvastatin 20 MG tablet
20 mg PO HS
losartan 25 MG tablet
25 mg PO HS
clozapine 25 MG tablet
75 mg PO HS
fenofibric acid (choline) 135 MG capsule,delayed release(DR/EC)
135 mg PO DAILY
PreserVision AREDS-2 1 EACH capsule
1 ea PO BID
metformin 500 mg Tablet
1,000 mg PO QPM
famotidine [Pepcid AC] 10 mg Tablet
10 mg PO DAILY PRN (Reason: reflux)
guar gum Packet
1 tbsp PO DAILY PRN (Reason: constipation)
gabapentin 100 mg Capsule
100 mg PO HS
loratadine [Claritin] 10 mg Tablet
10 mg PO DAILY
vitamin B complex Capsule
1 cap PO DAILY
bupropion HCl 300 mg Tablet Extended Release 24 Hr
300 mg PO HS
cholecalciferol (vitamin D3) [Vitamin D3] 25 mcg (1,000 unit) Tablet
25 mcg PO DAILY
ferrous sulfate 142 mg (45 mg iron) Tablet Extended Release
142 mg PO DAILY
Gemtesa 75 mg Tablet
75 mg PO QPM
biotin 5,000 mcg Tablet,Chewable
5,000 mcg PO DAILY
Bone Supplement
1 tab PO DAILY
Curcumin
1 tab PO DAILY PRN (Reason: pain)
Selenimin
1 tab PO DAILY
mupirocin 2 % ointment
1 applic topical BID Qty: 1 0RF
Patient Comments:
started treatment sunday12/06/24 and completed BID
nystatin 100,000 unit/mL Suspension
1 ml BUCCAL TID PRN (Reason: burning/thrush)
chlorhexidine gluconate 0.12 % Mouthwash
15 ml BUCCAL BID
cefadroxil 500 mg capsule
500 mg PO BID Qty: 14 0RF
Rx Instructions:
*Take w/ food
*Take w/ probiotic
*POST-OP USE
docusate sodium [Colace] 100 mg capsule
100 mg PO BID Qty: 1 0RF
Saccharomyces boulardii [Florastor] 250 mg capsule
250 mg PO BID Qty: 1 0RF
magnesium hydroxide [Milk of Magnesia] 400 mg/5 mL suspension
30 ml PO HS PRN (Reason: Constipation) Qty: 1 0RF
sennosides [Senokot] 8.6 mg tablet
17.2 mg PO BID Qty: 2 0RF
oxycodone 5 mg tablet
5 mg PO Q6H PRN (Reason: 1 tab moderate pain, 2 tabs severe pain) Qty: 30 0RF
Rx Instructions:
Ongoing therapy
acetaminophen [Tylenol] 325 mg tablet
650 mg PO QID Qty: 1 0RF
Rx Instructions:
SCHEDULED DOSING
aspirin 325 mg Tablet
325 mg PO DAILY Qty: 0 0RF
senna 8.6 mg Capsule
17.2 mg PO BID PRN (Reason: constipation) Qty: 0 0RF
Referrals:
Angeles Steinberg DO [Family Provider, Internal Medicine]
Activity Restrictions/Additional Instructions:
Please return for any worsening symptoms.
You may return at any time if you have further concerns.
Please follow up with your doctor at the first available appointment, preferably this week.
Please make an appointment with your orthopedist and keep the knee immobilizer on until told otherwise.
Thank you for choosing [facility].
Interventions
Interventions:
*Risk Screen - Suicide Last Done: 08/26/25 14:54
*General Assessment Last Done: 08/26/25 14:54
*Neglect/Abuse Screening Last Done: 08/26/25 14:54
*ED COVID-19 Vaccine History Last Done: 08/26/25 14:54
*ED Influenza Vaccine History Last Done: 08/26/25 14:54
ED-Musculoskeletal Assessment Last Done: 08/26/25 16:14
Discharge Date and Time
Print Language: PERSIAN
[2025-08-26 17:21] LABS: Glucose - Point of Care 69 mg/dl (70-99)
[2025-08-26 17:42] LABS: Glucose - Point of Care 84 mg/dl (70-99)
== END 2025-08-26 18:06 | disposition home or self-care (01) ==
LOC: EMR 14:45
PROVIDERS: EMERGENCY PHYSICIAN Student in an Organized Health Care Education/Training Program; FAMILY PHYSICIAN Internal Medicine
DX: T84.021A Dislocation of internal left hip prosthesis, initial encounter (principal); X50.1XXA Overexertion from prolonged static or awkward postures, initial encounter; Y79.2 Prosthetic and other implants, materials and accessory orthopedic devices associated with adverse incidents; Z87.891 Personal history of nicotine dependence
CPT/HCPCS: 27265; 99152; 99285; 73501; 73502; 82962

== ENCOUNTER 2025-10-06 15:25 | Emergency (ER) | payer OTHER, SELFPAY ==
[2025-10-06] VITALS (10 sets, daily range): BP systolic 102–132; BP diastolic 59–114
--- NOTE | 2025-10-06 15:32 | ED.GENMED ---
History of Present Illness
General
Chief Complaint: Musculo-Skeletal Complaint
Source: patient
Exam Limitations: none
Time Seen by Provider: 10/06/25 15:27
History of Present Illness
History of Present Illness:
See MDM
Past History
Past History
ED Past Medical History: Psychiatric
ED Past Surgical History: Orthopedic (Left hip replacement); Negative Appendectomy, Bowel resection or Cholecystectomy
Social History
Tobacco: Former smoker
Alcohol: None
Drug: None
Personal:
Living: with family
Employment: Employed
Family History
Family History: Other (CAD)
Phy Exam
Physical Exam
Physical Exam:
See MDM
Course
Orders/Labs/Results
Orders:
Orders
10/06/25 15:30
HYDROmorphone [Dilaudid] 1 mg IV NOW STA
Hip, Left 2-3 Views [CR Hip - LT w/wo Pel 2-3 Vw*] Urgent
Comment:
Reason For Exam: left hip pain
Include a pelvis x-ray?: Yes
10/06/25 15:50
Morphine Sulfate 4 mg IV NOW STA
10/06/25 17:58
Propofol [Diprivan] 20 ml .ROUTE .STK-MED
10/06/25 18:17
CR Hip - LT without Pel 1 Vw Urgent
Comment:
Reason For Exam: hip reduction
Vital Signs
Initial and Last Documented VS:
Initial Vital Signs
Pulse Resp BP Pulse Ox
74 20 132/114 96
10/06/25 15:31 10/06/25 15:31 10/06/25 15:31 10/06/25 15:31
Last Documented Vital Signs
Temp Pulse Resp BP Pulse Ox
98.1 F 70 12 102/65 98
10/06/25 18:10 10/06/25 18:20 10/06/25 18:20 10/06/25 18:20 10/06/25 18:20
Procedures
Moderate Sedation
ASA Risk Score: Class II
Chart and allergies reviewed: Yes
Consent for anesthesia obtained: Yes
Time out completed (validating right patient & procedure): Yes
Moderate Sedation Start Time(when first medication is given): 18:11
History of difficult intubation: No
Airway free of obstruction: Yes
Patient has a gag reflex: Yes
Patient is able to open mouth: Yes
Patient has no dentures: No
Patient has no loose teeth: Yes
Medication administered by Provider during Moderate Sedation: IV Propofol (mg)
Total dose administered: 75
Time drug administered: 18:11
Moderate Sedation Procedure End Time: 18:26
Joint/Fracture Reduction
Left Anterior Lateral Hip:
Indication for procedure:: Left hip dislocation
Procedure completed by: Moe Rice DO
Consent form signed: Yes
Joint reduced: with anesthesia sedation
Injury was: closed
Further treatement: needs re-check only
Post reduction exam: stable
Capillary Refill: normal
Normal distal neurovascular exam?: Yes
Peripheral Pulses: dorsalis pedis (left): 2+
MDM/Problems Addressed
Differential Diagnosis Includes:
Note:
CHIEF COMPLAINT(S)
Left hip dislocation.
HISTORY OF PRESENT ILLNESS
The patient is a 75-year-old female with a history of repeated left hip dislocations. She reports this is the third occurrence of her hip 'coming out.' The patient previously saw Dr. Mancera for the same issue, and it was discussed that she might
need revision surgery to address the recurrent dislocations. The patient is experiencing discomfort and is unable to tolerate certain movements.
SOCIAL DETERMINANTS OF HEALTH
The patient expresses frustration with the recurrent hip dislocations affecting her quality of life. She jokes about frequently meeting healthcare providers due to her condition, indicating a desire to avoid repeated hospital visits.
PHYSICAL EXAM
General: Alert, no acute distress.
Skin: Warm, dry.
Head: Normocephalic, atraumatic
Neck: Appears supple, trachea midline.
Eyes, Ears, Nose, Mouth, and Throat: Moist mucous membranes
Cardiovascular: No signs of cyanosis
Respiratory: Respirations are non-labored.
Abdomen: Non-distended
Musculoskeletal: Mild tenderness to left hip. Left leg shortened and internally rotated. Distal extremity neurovascularly intact
Neurological: No focal neurological deficit observed.
Psychiatric: Cooperative, appropriate mood and affect.
PLAN
- X-ray of the left hip to evaluate the current status and positioning.
- Administer pain medication as discussed and preferred by the patient.
DIFFERENTIAL DIAGNOSIS
The Differential Diagnosis includes, in no particular order and is not limited to:
- Recurrent hip dislocation
- Prosthetic joint instability
- Hip joint arthritis
- Ligamentous laxity
- Surgical complication from previous procedures
- Muscular imbalance
- Infection
- Periprosthetic fracture
- Mechanical joint failure
- Chronic pain syndrome
SUMMARY OF ENCOUNTER
The patient presented to the emergency department with a complaint of recurrent left hip dislocation. An x-ray is planned to assess the hip joint, and pain management is addressed based on the patients preferences and past medication tolerance.
MEDICAL DECISION MAKING
-Complexity of Data Reviewed: Chronic conditions affecting care include recurrent left hip dislocation and possible need for revision surgery.
-Data:
Category 1:
- Ordered: X-ray of the left hip.
-Risk:
Prescription medication was prescribed and the patient will receive preferred pain management, considering past experiences with pain medications.
DIAGNOSIS
Recurrent left hip dislocation (ICD-10: M24.451).
SUMMARY OF ENCOUNTER
The patient presented with a left hip dislocation without significant trauma. This has been a recurrent issue, and the patient mentioned an orthopedist is considering surgery to prevent further dislocations. Moderate sedation with propofol was
administered, and the hip was successfully reduced. A knee immobilizer was placed.
DISPOSITION
Discharge.
PLAN
Discharge the patient with instructions to follow up with her orthopedist.
MEDICATION RECONCILIATION
Moderate sedation was administered using propofol.
DIAGNOSIS
Recurrent left hip dislocation (ICD-10: M24.451).
*Pulse Oximetry
Patient hypoxic: no
*Critical Care Note
Total Time (30-74mins, 75-104mins- exclusive of procedures): Not Applicable
ED Attending Note
-
Portions of this chart may have been created with voice recognition software.� Occasional wrong word or��sound alike� substitutions may have occurred due to the inherent limitations of voice recognition software.
Discharge Plan
Departure
Patient Disposition: Home (Routine Discharge)
Date of Disposition: 10/06/25
Time of Disposition: 18:27
Patient with high blood pressure during this ER visit?: No
Discharge Problem:
Anterior dislocation of left hip
Instructions: Hip Dislocation (DC), MODERATE SEDATION ADULT
Prescriptions:
No Action
metformin 500 MG tablet
500 mg PO DAILY
venlafaxine 75 MG capsule,extended release 24hr
75 mg PO HS
clozapine 100 MG tablet
100 mg PO HS
venlafaxine [Effexor XR] 150 MG capsule,extended release 24hr
150 mg PO HS
simvastatin 20 MG tablet
20 mg PO HS
losartan 25 MG tablet
25 mg PO HS
clozapine 25 MG tablet
75 mg PO HS
fenofibric acid (choline) 135 MG capsule,delayed release(DR/EC)
135 mg PO DAILY
PreserVision AREDS-2 1 EACH capsule
1 ea PO BID
metformin 500 mg Tablet
1,000 mg PO QPM
famotidine [Pepcid AC] 10 mg Tablet
10 mg PO DAILY PRN (Reason: reflux)
guar gum Packet
1 tbsp PO DAILY PRN (Reason: constipation)
gabapentin 100 mg Capsule
100 mg PO HS
loratadine [Claritin] 10 mg Tablet
10 mg PO DAILY
vitamin B complex Capsule
1 cap PO DAILY
bupropion HCl 300 mg Tablet Extended Release 24 Hr
300 mg PO HS
cholecalciferol (vitamin D3) [Vitamin D3] 25 mcg (1,000 unit) Tablet
25 mcg PO DAILY
ferrous sulfate 142 mg (45 mg iron) Tablet Extended Release
142 mg PO DAILY
Gemtesa 75 mg Tablet
75 mg PO QPM
biotin 5,000 mcg Tablet,Chewable
5,000 mcg PO DAILY
Bone Supplement
1 tab PO DAILY
Curcumin
1 tab PO DAILY PRN (Reason: pain)
Selenimin
1 tab PO DAILY
mupirocin 2 % ointment
1 applic topical BID Qty: 1 0RF
Patient Comments:
started treatment sunday12/06/24 and completed BID
nystatin 100,000 unit/mL Suspension
1 ml BUCCAL TID PRN (Reason: burning/thrush)
chlorhexidine gluconate 0.12 % Mouthwash
15 ml BUCCAL BID
cefadroxil 500 mg capsule
500 mg PO BID Qty: 14 0RF
Rx Instructions:
*Take w/ food
*Take w/ probiotic
*POST-OP USE
docusate sodium [Colace] 100 mg capsule
100 mg PO BID Qty: 1 0RF
Saccharomyces boulardii [Florastor] 250 mg capsule
250 mg PO BID Qty: 1 0RF
magnesium hydroxide [Milk of Magnesia] 400 mg/5 mL suspension
30 ml PO HS PRN (Reason: Constipation) Qty: 1 0RF
sennosides [Senokot] 8.6 mg tablet
17.2 mg PO BID Qty: 2 0RF
oxycodone 5 mg tablet
5 mg PO Q6H PRN (Reason: 1 tab moderate pain, 2 tabs severe pain) Qty: 30 0RF
Rx Instructions:
Ongoing therapy
acetaminophen [Tylenol] 325 mg tablet
650 mg PO QID Qty: 1 0RF
Rx Instructions:
SCHEDULED DOSING
aspirin 325 mg Tablet
325 mg PO DAILY Qty: 0 0RF
senna 8.6 mg Capsule
17.2 mg PO BID PRN (Reason: constipation) Qty: 0 0RF
Referrals:
Angeles Steinberg DO [Family Provider, Internal Medicine]
Tomás Mancera MD [Active, Orthopedics]
Activity Restrictions/Additional Instructions:
Please return for any worsening symptoms.
You may return at any time if you have further concerns.
Please follow up with your doctor at the first available appointment, preferably this week.
Please call your orthopedist. You mentioned that they may want to perform another surgery to stop the multiple dislocations.
Thank you for choosing [facility].
Interventions
Interventions:
*Risk Screen - Suicide Last Done: 10/06/25 15:31
*General Assessment Last Done: 10/06/25 15:31
*Neglect/Abuse Screening Last Done: 10/06/25 15:31
*ED COVID-19 Vaccine History Last Done: 10/06/25 17:00
*ED Influenza Vaccine History Last Done: 10/06/25 17:00
ED-Musculoskeletal Assessment Last Done: 10/06/25 17:00
Discharge Date and Time
Print Language: [id number]
[2025-10-06] MEDS: MORPHINE SULFATE 4 MG IV (15:53)
[2025-10-06 18:47] LABS: Glucose - Point of Care 98 mg/dl (70-99)
== END 2025-10-06 19:55 | disposition home or self-care (01) ==
LOC: EMR 15:25
PROVIDERS: EMERGENCY PHYSICIAN Student in an Organized Health Care Education/Training Program; FAMILY PHYSICIAN Internal Medicine
DX: T84.021A Dislocation of internal left hip prosthesis, initial encounter (principal); Y79.2 Prosthetic and other implants, materials and accessory orthopedic devices associated with adverse incidents; Z96.642 Presence of left artificial hip joint; Z87.891 Personal history of nicotine dependence
CPT/HCPCS: 99285; 96374; 27265; 73501; 73502; 82962

== ENCOUNTER → 2025-11-09 19:01 | Outpatient (REF) | payer OTHER, SELFPAY | LOC: RAD 19:01 | PROVIDERS: ATTENDING PHYSICIAN Orthopaedic Surgery; FAMILY PHYSICIAN Internal Medicine | DX: Z47.89 Encounter for other orthopedic aftercare (principal) | CPT/HCPCS: 73502 ==